=== PATIENT | male | born 1955 | race Asian ===

== ENCOUNTER 2023-11-22 05:05 | Day surgery (SDC) | payer OTHER ==
[2023-11-17 11:39] VITALS: BMI 27.8
[2023-11-22] MEDS ORDERED: BUPIVACAINE HCL/PF 0.75% 10 ML VIAL ONE ×2 (07:13→07:15)
[2023-11-22] MEDS ORDERED: LIDOCAINE HCL/PF 1% SDV 5ML VIAL ONE ×2 (07:13→07:15)
[2023-11-22] MEDS: BUPIVACAINE HCL/PF 0.75% 10 ML VIAL NR ONE (10:09)
[2023-11-22] MEDS: LIDOCAINE HCL 1% PRESERVATIVE FREE - 30ML VIAL IJ ONE ×2 (10:09)
[2023-11-22 10:31] VITALS: BP 145/86; PULSE 88; RESP 18; TEMP 98.6
[2023-11-22] MEDS ORDERED: ACETAMINOPHEN 500 MG TABLET (FP) PO PRN (12:08)
== END 2023-11-22 10:55 | disposition home or self-care (01) ==
LOC: JASU-SURG 05:05
PROVIDERS: ATTEND Pain Medicine Pain Medicine
PROC: 3E0T33Z Introduction of Anti-inflammatory into Peripheral Nerves and Plexi, Percutaneous Approach (ICD-10-PCS; 2023-11-22)
PROC: 3E0T3BZ Introduction of Anesthetic Agent into Peripheral Nerves and Plexi, Percutaneous Approach (ICD-10-PCS; principal; 2023-11-22 10:15)
DX: M47.816 Spondylosis without myelopathy or radiculopathy, lumbar region (principal)
CPT/HCPCS: 76000-TC-FY

== ENCOUNTER 2023-12-23 04:11 | Day surgery (SDC) | payer OTHER ==
[2023-12-19 14:44] VITALS: BMI 27.6
[2023-12-23] MEDS ORDERED: LIDOCAINE HCL/PF 1% SDV 5ML VIAL ONE (07:04)
[2023-12-23] MEDS: LIDOCAINE 1% P/F 10 MG/ML VIAL INF ONE ×3 (08:43)
[2023-12-23 09:11] VITALS: BP 142/92; PULSE 79; RESP 18; TEMP 97.2
[2023-12-23] MEDS ORDERED: ACETAMINOPHEN 500 MG TABLET (FP) PO PRN (09:31)
== END 2023-12-23 10:23 | disposition home or self-care (01) ==
LOC: JASU-SURG 10:23
PROVIDERS: ATTEND Pain Medicine Pain Medicine
PROC: 01HY3MZ Insertion of Neurostimulator Lead into Peripheral Nerve, Percutaneous Approach (ICD-10-PCS; principal; 2023-12-23 08:15)
DX: G89.4 Chronic pain syndrome (principal)
CPT/HCPCS: 64555; C1778

== ENCOUNTER 2024-02-21 04:28 | Day surgery (SDC) | payer OTHER ==
[2024-02-17 08:47] VITALS: BMI 27.0
[2024-02-21] MEDS ORDERED: LIDOCAINE VISCOUS 2% ORAL/TOP 15 ML UNIT-DOSE CUP ONE (08:47)
[2024-02-21 10:00] VITALS: TEMP 98
[2024-02-21 10:47] VITALS: BP 143/74; PULSE 103; RESP 20
== END 2024-02-21 11:03 | disposition home or self-care (01) ==
LOC: JASU-ENDO 04:28
PROVIDERS: ATTEND Internal Medicine Gastroenterology
PROC: 0DBL8ZX Excision of Transverse Colon, Via Natural or Artificial Opening Endoscopic, Diagnostic (ICD-10-PCS; 2024-02-21)
PROC: 0DBH8ZX Excision of Cecum, Via Natural or Artificial Opening Endoscopic, Diagnostic (ICD-10-PCS; 2024-02-21)
PROC: 0DBP8ZX Excision of Rectum, Via Natural or Artificial Opening Endoscopic, Diagnostic (ICD-10-PCS; 2024-02-21)
PROC: 0DB98ZX Excision of Duodenum, Via Natural or Artificial Opening Endoscopic, Diagnostic (ICD-10-PCS; 2024-02-21)
PROC: 0DB68ZX Excision of Stomach, Via Natural or Artificial Opening Endoscopic, Diagnostic (ICD-10-PCS; 2024-02-21)
PROC: 0DBK8ZX Excision of Ascending Colon, Via Natural or Artificial Opening Endoscopic, Diagnostic (ICD-10-PCS; principal; 2024-02-21 09:00)
DX: Z12.11 Encounter for screening for malignant neoplasm of colon (principal); D12.0 Benign neoplasm of cecum; D12.2 Benign neoplasm of ascending colon; D12.3 Benign neoplasm of transverse colon; D12.8 Benign neoplasm of rectum; K29.50 Unspecified chronic gastritis without bleeding; B96.81 Helicobacter pylori [H. pylori] as the cause of diseases classified elsewhere; I10 Essential (primary) hypertension; E11.9 Type 2 diabetes mellitus without complications; Z79.84 Long term (current) use of oral hypoglycemic drugs
CPT/HCPCS: 82962; 88305-TC; 88342-TC

== ENCOUNTER 2024-03-08 04:11 | Day surgery (SDC) | payer OTHER ==
[2024-01-26 09:49] VITALS: BMI 27.6
[2024-03-08] MEDS ORDERED: BUPIVACAINE HCL/PF 0.25% (2.5MG/ML) 10 ML VIAL ONE (07:25)
[2024-03-08] MEDS ORDERED: LIDOCAINE HCL/PF 2% SDV 5ML VIAL ONE (07:25)
[2024-03-08] MEDS ORDERED: BUPIVACAINE HCL/PF 0.5% (5MG/ML) 10 ML VIAL ONE (07:26)
[2024-03-08] MEDS ORDERED: TRIAMCINOLONE ACET 40MG/1ML VIAL ONE (07:26)
[2024-03-08] MEDS ORDERED: DEXAMETHASONE SOD PHOSPHATE 4 MG/1 ML VIAL ONE (07:26)
[2024-03-08] MEDS ORDERED: DEXAMETHASONE SOD PHOSPHATE 10 MG/1 ML VIAL ONE (07:27)
[2024-03-08] MEDS ORDERED: LIDOCAINE HCL/PF 1% SDV 5ML VIAL ONE (07:27)
[2024-03-08] MEDS ORDERED: BUPIVACAINE HCL/PF 0.75% 10 ML VIAL ONE (07:27)
[2024-03-08] MEDS: LIDOCAINE 1% P/F 10 MG/ML VIAL INF ONE (08:26)
[2024-03-08 09:13] VITALS: BP 138/87; PULSE 88; RESP 18; TEMP 96.9
[2024-03-08] MEDS ORDERED: ACETAMINOPHEN 500 MG TABLET (FP) PO PRN (10:52)
== END 2024-03-08 09:45 | disposition home or self-care (01) ==
LOC: JASU-SURG 04:11
PROVIDERS: ATTEND Pain Medicine Pain Medicine
PROC: 01HY3MZ Insertion of Neurostimulator Lead into Peripheral Nerve, Percutaneous Approach (ICD-10-PCS; principal; 2024-03-08 08:00)
DX: G89.4 Chronic pain syndrome (principal); M54.50 Low back pain, unspecified
CPT/HCPCS: 64555; C1778; 76000-TC-FY; J1100

== ENCOUNTER 2025-05-16 06:07 | Inpatient (IN) | payer OTHER, MEDICARE ==
[2025-05-16] MEDS ORDERED: GENTAMICIN SO4 80 MG/2 ML VIAL ONE (07:32)
[2025-05-16] MEDS ORDERED: BACITRACIN ZINC 15 GM TUBE TOPICAL OINTMENT ONE (07:32)
[2025-05-16] MEDS ORDERED: BUPIVACAINE HCL/PF 0.5% (5MG/ML) 10 ML VIAL ONE (07:33)
[2025-05-16] MEDS ORDERED: LIDOCAINE 1%/EPI 1:100000 (20 ML MULTI DOSE VIAL) ONE (07:33)
[2025-05-16] MEDS ORDERED: LIDOCAINE HCL 4% TOPICAL SOLN (50 ML/BOTTLE) ONE (07:52)
[2025-05-16] MEDS ORDERED: LIDOCAINE HCL 2% JELLY 6 ML TP ONE (07:52)
[2025-05-16] MEDS ORDERED: LIDOCAINE HCL/PF 2% SDV 5ML VIAL ONE ×2 (07:52→14:32)
[2025-05-16] MEDS ORDERED: THROMBIN (BOVINE) 20,000 UNIT VIAL TP ONE (07:54)
[2025-05-16] MEDS ORDERED: PROPOFOL 20 ML ONE ×4 (08:06→14:32)
[2025-05-16] MEDS ORDERED: SUCCINYLCHOLINE CHLORIDE 200 MG/10 ML SYRINGE ONE (08:06)
[2025-05-16] MEDS ORDERED: MIDAZOLAM HCL 2 MG/2 ML SINGLE DOSE VIAL ONE ×2 (08:06→13:06)
[2025-05-16] MEDS ORDERED: ROCURONIUM BROMIDE 50 MG/5 ML SYRINGE ONE ×2 (08:06→09:50)
[2025-05-16] MEDS ORDERED: DEXMEDETOMIDINE HCL 200 MCG/2 ML IVPB ONE (08:09)
[2025-05-16] MEDS ORDERED: BUPIVACAINE LIPOSOME/PF (EXPAREL) 266 MG/20 ML VIAL ONE (08:20)
[2025-05-16] MEDS ORDERED: LIDOCAINE HCL 2% JELLY 11 ML TP ONE (09:10)
[2025-05-16] MEDS ORDERED: VANCOMYCIN 1,000 MG VIAL (RESTRICTED TO ID ONLY) ONE (09:26)
[2025-05-16] MEDS: VANCOMYCIN 1,000 MG VIAL (RESTRICTED TO ID ONLY) IVPB ONE (09:35)
[2025-05-16] MEDS: LIDOCAINE 1%/EPI 1:100000 (50 ML MULTI DOSE VIAL) INF ONE ×2 (09:44)
[2025-05-16] MEDS ORDERED: ESMOLOL 2500 MG/250 ML 2,500,000 MCG/250 ML INFUS.BAG IVPB ONE (09:54)
[2025-05-16] MEDS: THROMBIN (BOVINE) 20,000 UNIT VIAL TP ONE (09:55)
[2025-05-16] MEDS ORDERED: LABETALOL HCL 20 MG/4 ML VIAL ONE (09:58)
[2025-05-16] MEDS ORDERED: PHENYLEPHRINE HCL 10 MG/1 ML SINGLE DOSE VIAL ONE (10:09)
[2025-05-16] MEDS: BUPIVACAINE LIPOSOME/PF (EXPAREL) 266 MG/20 ML VIAL NR ONE (12:00)
[2025-05-16] MEDS: BUPIVACAINE HCL/PF 0.5% (5MG/ML) 10 ML VIAL IJ ONE (12:00)
[2025-05-16] MEDS ORDERED: diphenhydrAMINE HCL 25 MG CAPSULE (FP) PO PRN (13:01)
[2025-05-16] MEDS ORDERED: ONDANSETRON 4 MG/2 ML VIAL IVPUSH PRN (13:01)
[2025-05-16] MEDS ORDERED: MIDAZOLAM IN 0.9 % SOD.CHLORID 1 MG/1 ML PLAST..BAG ONE (13:09)
[2025-05-16] MEDS: MIDAZOLAM IN 0.9 % SOD.CHLORID 100 MG/100 ML PLAST..BAG IVPB SCH (14:00)
[2025-05-16] MEDS: LACTATED RINGERS SOLUTION 1,000 ML/1,000 ML INFUS.BAG IV SCH (14:17)
[2025-05-16 15:00] LABS: MCHC 29.3 g/dl (32.3-36.5); MEAN CELL VOLUME 83.3 fl (79.0-92.2); MEAN PLT VOLUME 10.2 fl (9.4-12.4); RDW 16.8 % (12.2-16.6)
[2025-05-16] MEDS: ACETAMINOPHEN 1000 MG/100 ML BAG IVPB SCH (17:36)
[2025-05-16] MEDS: DOCUSATE SODIUM 100 MG CAPSULE (FP) PO SCH (17:36)
[2025-05-16] MEDS: metFORMIN HCL 500 MG TABLET (FP) PO SCH (17:37)
[2025-05-16] MEDS: TAMSULOSIN HCL 0.4 MG CAP PO ONE (17:37)
[2025-05-16] MEDS: HEPARIN NA (PORCINE) 5,000 UNITS/ML 1ML VIAL SQ SCH (17:55)
[2025-05-16] MEDS: DEXAMETHASONE SOD PHOSPHATE 10 MG/1 ML VIAL IVPUSH SCH (17:55)
[2025-05-16] MEDS: CEFAZOLIN 1 GM in DEXTROSE 5%-WATER - 50 ML IVPB SCH (17:55)
[2025-05-16] MEDS: FENTANYL NS IVPB 500 MCG/100 ML BAG IVPB SCH (19:49)
[2025-05-16] MEDS: PROPOFOL 1,000,000 MCG/100 ML VIAL IVPB SCH (19:51)
[2025-05-16] MEDS ORDERED: ATORVASTATIN CA 10 MG TABLET (FP) PO SCH (22:00)
[2025-05-16] MEDS: OXYMETAZOLINE 0.05% NASAL SOLUTION 15 ML BOTTLE NS SCH (22:05)
[2025-05-17 07:11] LABS: MCHC 29.3 g/dl (32.3-36.5); MEAN CELL VOLUME 83.1 fl (79.0-92.2); MEAN PLT VOLUME 10.6 fl (9.4-12.4); RDW 16.7 % (12.2-16.6)
[2025-05-17 07:38] LABS: GLUCOSE,RANDOM 172.0 mg/dL (74-106); TOT PROT 5.0 g/dl (6.4-8.2)
[2025-05-17 07:39] LABS: CO2 26.0 mmol/L (21-32)
[2025-05-17 07:40] LABS: ALK PHOS 96.0 U/L (40-150)
[2025-05-17 07:43] LABS: CREATININE 0.74 mg/dL (0.55-1.3); SGOT/AST 12.0 U/L (5-34); SGPT/ALT 8.0 U/L (0-55)
[2025-05-17 08:10] LABS: URINE APPEARANCE CLEAR; URINE BILIRUBIN NEGATIVE (NEGATIVE); URINE COLOR YELLOW; URINE GLUCOSE (UA) NEGATIVE (NEGATIVE); URINE KETONE NEGATIVE (NEGATIVE); URINE LEUK ESTERASE NEGATIVE (NEGATIVE); URINE NITRITE NEGATIVE (NEGATIVE); URINE PROTEIN NEGATIVE (NEGATIVE); URINE UROBILINOGEN 0.2 mg/dL (0.2-1.0)
[2025-05-17] MEDS: PANTOPRAZOLE SODIUM 40 MG VIAL IVPUSH SCH (09:56)
[2025-05-17] MEDS: LORATADINE 10 MG TABLET PO SCH (09:57)
[2025-05-17] MEDS ORDERED: FAMOTIDINE 20 MG TABLET PO SCH (10:00)
[2025-05-17] MEDS ORDERED: ASPIRIN 300 MG SUPP.RECT RC SCH ×2 (10:00)
[2025-05-17] MEDS ORDERED: ERGOCALCIFEROL (VIT D2) 50,000 UNIT (1.25 MG) CAPSULE PO SCH (10:00)
[2025-05-17] MEDS ORDERED: LOSARTAN 50MG/HCTZ 12.5MG 1 TAB PO SCH (10:00)
[2025-05-17] MEDS ORDERED: DEXMEDETOMIDINE PREMIX 400 MCG/100 ML BAG IVPB ONE (11:08)
[2025-05-17] MEDS: DEXMEDETOMIDINE PREMIX 400 MCG/100 ML BAG IVPB SCH (11:20)
[2025-05-17] MEDS ORDERED: ATORVASTATIN CA 10 MG TABLET (FP) PO SCH (22:00)
[2025-05-17] MEDS ORDERED: ASPIRIN 81 MG CHEWABLE TABLETS PO SCH (22:00)
[2025-05-18 07:31] LABS: MCHC 29.7 g/dl (32.3-36.5); MEAN CELL VOLUME 84.1 fl (79.0-92.2); MEAN PLT VOLUME 10.9 fl (9.4-12.4); RDW 17.5 % (12.2-16.6)
[2025-05-18 07:57] LABS: GLUCOSE,RANDOM 183.0 mg/dL (74-106); TOT PROT 5.3 g/dl (6.4-8.2)
[2025-05-18 07:58] LABS: CO2 27.0 mmol/L (21-32)
[2025-05-18 08:00] LABS: ALK PHOS 94.0 U/L (40-150)
[2025-05-18 08:03] LABS: CREATININE 0.66 mg/dL (0.55-1.3); SGOT/AST 13.0 U/L (5-34); SGPT/ALT 7.0 U/L (0-55)
[2025-05-18] MEDS: DOCUSATE SODIUM 100 MG CAPSULE (FP) PO SCH (17:33)
[2025-05-18] MEDS: SENNOSIDES 8.8 MG/5 ML SYRUP PO SCH (21:02)
[2025-05-19 06:59] LABS: ABSOLUTE IMMATURE GRANULOCYTES 0.15 x10^3/uL (0.0-0.031); BASOPHILS # 0.01 x10^3/uL (0.01-0.08); EOSINOPHIL % 0.0 % (0.8-7.0); EOSINOPHILS # 0.00 x10^3/uL (0.04-0.54); MCHC 29.3 g/dl (32.3-36.5); MEAN CELL VOLUME 83.1 fl (79.0-92.2); MEAN PLT VOLUME 10.4 fl (9.4-12.4); MONOCYTE # 0.42 x10^3/uL (0.30-0.82); MONOCYTE % 4.4 % (5.3-12.2); RDW 18.2 % (12.2-16.6)
[2025-05-19 07:37] LABS: GLUCOSE,RANDOM 167 mg/dL (74-106)
[2025-05-19 07:38] LABS: TOT PROT 5.2 g/dl (6.4-8.2)
[2025-05-19 07:39] LABS: CO2 28 mmol/L (21-32)
[2025-05-19 07:40] LABS: ALK PHOS 85 U/L (40-150)
[2025-05-19 07:43] LABS: SGOT/AST 11 U/L (5-34); SGPT/ALT < 6 U/L (0-55)
[2025-05-19 07:44] LABS: CREATININE 0.50 mg/dL (0.55-1.3)
[2025-05-19] MEDS: ACETAMINOPHEN 1000 MG/100 ML BAG IVPB SCH ×2 (09:47→21:14)
[2025-05-19] MEDS: SODIUM PHOSPHATE - 15 MM in DEXTROSE 5%-WATER - 250 ML IVPB ONE (11:10)
[2025-05-19] MEDS: METOPROLOL TARTRATE 25 MG TABLET (FP) PO ONE (13:18)
[2025-05-19] MEDS ORDERED: ONDANSETRON 4 MG/2 ML VIAL IVPUSH PRN (16:50)
[2025-05-19] MEDS ORDERED: diphenhydrAMINE HCL 25 MG CAPSULE (FP) PO PRN (16:50)
[2025-05-19] MEDS: CEFAZOLIN 1 GM in DEXTROSE 5%-WATER - 50 ML IVPB SCH (17:44)
[2025-05-19] MEDS: DEXAMETHASONE SOD PHOSPHATE 10 MG/1 ML VIAL IVPUSH SCH (17:44)
[2025-05-19] MEDS: HEPARIN NA (PORCINE) 5,000 UNITS/ML 1ML VIAL SQ SCH (21:16)
[2025-05-19] MEDS: DOCUSATE SODIUM 100 MG CAPSULE (FP) PO SCH (21:17)
[2025-05-19] MEDS: SENNOSIDES 8.8 MG/5 ML SYRUP PO SCH (21:17)
[2025-05-19] MEDS: OXYMETAZOLINE 0.05% NASAL SOLUTION 15 ML BOTTLE NS SCH (21:17)
[2025-05-19] MEDS: MELATONIN 5 MG TABLETS PO ONE (23:25)
[2025-05-20 08:39] LABS: ABSOLUTE IMMATURE GRANULOCYTES 0.08 x10^3/uL (0.0-0.031); BASOPHILS # 0.01 x10^3/uL (0.01-0.08); EOSINOPHIL % 0.0 % (0.8-7.0); EOSINOPHILS # 0.00 x10^3/uL (0.04-0.54); MCHC 29.5 g/dl (32.3-36.5); MEAN CELL VOLUME 83.0 fl (79.0-92.2); MEAN PLT VOLUME 10.3 fl (9.4-12.4); MONOCYTE # 0.51 x10^3/uL (0.30-0.82); MONOCYTE % 5.9 % (5.3-12.2); RDW 18.3 % (12.2-16.6)
[2025-05-20 09:00] VITALS: BP 129/56; PULSE 87; RESP 16; TEMP 98.1
[2025-05-20 09:03] LABS: GLUCOSE,RANDOM 167 mg/dL (74-106)
[2025-05-20 09:04] LABS: CO2 27 mmol/L (21-32); TOT PROT 5.2 g/dl (6.4-8.2)
[2025-05-20 09:06] LABS: ALK PHOS 81 U/L (40-150)
[2025-05-20 09:09] LABS: SGOT/AST 10 U/L (5-34); SGPT/ALT < 6 U/L (0-55)
[2025-05-20] MEDS: LORATADINE 10 MG TABLET PO SCH (10:27)
[2025-05-20 11:08] LABS: CREATININE 0.59 mg/dL (0.55-1.3)
[2025-05-20] MEDS: PANTOPRAZOLE SODIUM 40 MG VIAL IVPUSH SCH (11:40)
[2025-05-20] MEDS ORDERED: ACETAMINOPHEN 325 MG TABLET (FP) PO PRN (12:44)
[2025-05-20] MEDS ORDERED: PANTOPRAZOLE 40 MG TABLET PO SCH (12:45)
[2025-05-20 15:01] VITALS: BMI 28.5
== END 2025-05-20 15:46 | disposition home or self-care (01) | DRG 430 ==
LOC: J2C 06:07 → JICU 13:56 → J8W 05-19 16:40
PROVIDERS: ADMIT Student in an Organized Health Care Education/Training Program; ATTEND Family Medicine
PROC: 0RG2071 Fusion of 2 or more Cervical Vertebral Joints with Autologous Tissue Substitute, Posterior Approach, Posterior Column, Open Approach (ICD-10-PCS; 2025-05-16)
PROC: 00NW0ZZ Release Cervical Spinal Cord, Open Approach (ICD-10-PCS; 2025-05-16)
PROC: 4A11X4G Monitoring of Peripheral Nervous Electrical Activity, Intraoperative, External Approach (ICD-10-PCS; 2025-05-16)
PROC: 0RG207J Fusion of 2 or more Cervical Vertebral Joints with Autologous Tissue Substitute, Posterior Approach, Anterior Column, Open Approach (ICD-10-PCS; principal; 2025-05-16 08:30)
DX: M47.12 Other spondylosis with myelopathy, cervical region (principal); M40.292 Other kyphosis, cervical region; I10 Essential (primary) hypertension; E11.9 Type 2 diabetes mellitus without complications; R60.9 Edema, unspecified; D64.9 Anemia, unspecified
CPT/HCPCS: 36415; 36430; 71045-TC-FY; 72050-TC-FY; 72125-TC; 76000-TC-FY; 80048; 80053; 81003; 82962; 83735; 84100; 85025; 85027; 86850; 86900; 86901; 86922; 94002; 94760; 97116-GP; 97162-GP; C1713; J0666; J1100; P9058